=== PATIENT | male | born 1990 | race Caucasian/White ===

== ENCOUNTER 2017-06-10 19:45 | Emergency (ER) | payer MEDICARE, MEDICAID ==
[~2017-06-10] VITALS: Ht 165.1 cm; Wt 63.3 kg
[2017-06-10] MEDS ORDERED: LORAZEPAM 1MG TABLET PO ONE (22:30)
[2017-06-11 00:21] VITALS: BP 130/76
== END 2017-06-11 00:30 | disposition home or self-care (01) ==
LOC: ER 19:45
DX: F41.9 Anxiety disorder, unspecified (principal); E05.90 Thyrotoxicosis, unspecified without thyrotoxic crisis or storm
CPT/HCPCS: 71010; 93005; 99284

== ENCOUNTER 2017-09-27 14:32 | Emergency (ER) | payer MEDICARE, MEDICAID ==
[~2017-09-27] VITALS: Ht 165.1 cm; Wt 67.0 kg
[2017-09-27] MEDS ORDERED: LORAZEPAM 2MG/ML CPJ IM ONE (18:45)
[2017-09-27 20:39] VITALS: BP 142/85
== END 2017-09-27 20:41 | disposition home or self-care (01) ==
LOC: ER 14:37
DX: R07.89 Other chest pain (principal); F41.9 Anxiety disorder, unspecified; E05.90 Thyrotoxicosis, unspecified without thyrotoxic crisis or storm
CPT/HCPCS: 71045; 93005; 96372; 99284; J2060

== ENCOUNTER 2023-01-01 09:47 | Emergency (ER) | payer MEDICAID, MEDICARE ==
[~2023-01-01] VITALS: Ht 165.1 cm; Wt 56.7 kg
[2023-01-01] MEDS ORDERED: NAPR-681 PO (11:22)
[2023-01-01 12:11] VITALS: BP 132/77
== END 2023-01-01 12:50 | disposition home or self-care (01) ==
LOC: ER 12:22
DX: S93.602A Unspecified sprain of left foot, initial encounter (principal); R00.0 Tachycardia, unspecified; Z86.39 Personal history of other endocrine, nutritional and metabolic disease; Z98.890 Other specified postprocedural states; W17.2XXA Fall into hole, initial encounter; Y93.02 Activity, running; Y92.89 Other specified places as the place of occurrence of the external cause; Y99.8 Other external cause status
CPT/HCPCS: 73630; 93005; 99283; Z7610